=== PATIENT | female | born 1935 | race Caucasian/White ===

== ENCOUNTER 2021-01-26 22:40 | Emergency (ER) | payer OTHER, SELFPAY ==
[~2021-01-26] VITALS: Ht 157.5 cm; Wt 68.0 kg
[~2021-01-26 22:40] MED LIST: ASPI-1457 PO; DOCU-19 PO; LIP40 PO; NIAC500T2 PO; QUIN20TA PO
[2021-01-26 22:50] VITALS: BP_SYST 152
[2021-01-26] MEDS ORDERED: LORazepam 2 MG/ML VIAL IVP ONE (23:00)
[2021-01-26] MEDS ORDERED: DEXAMETHASONE SOD PHOSPHATE 10 MG/ML VIAL IVP ONE (23:00)
[2021-01-26] MEDS ORDERED: MAGNESIUM SULFATE 50 ML IV ONE (23:00)
[2021-01-26] MEDS ORDERED: FUROSEMIDE 40 MG/4 ML VIAL IVP ONE (23:00)
[2021-01-26 23:36] LABS: BASOPHILS # (AUTO) 0.1 K/uL (0.0-0.2); BASOPHILS % (AUTO) 0.7 % (0.0-2.0); EOSINOPHILS # (AUTO) 0.1 K/uL (0.0-0.4); HEMATOCRIT 38.7 % (36-48); HEMOGLOBIN 12.8 g/dL (12.0-16.0); LYMPHOCYTES # (AUTO) 2.7 K/uL (1.0-5.5); LYMPHOCYTES % (AUTO) 36.2 % (20.5-51.5); MEAN CORPUSCULAR HEMOGLOBIN 31 pg (27-31); MEAN CORPUSCULAR HGB CONC 33 % (32-36); MEAN CORPUSCULAR VOLUME 93 fL (79.0-98.0); MONOCYTES # (AUTO) 0.4 K/uL (0.0-1.0); MONOCYTES % (AUTO) 6.1 % (1.7-9.3); PLATELET COUNT (AUTO) 205 K/uL (130-430); RED BLOOD CELL COUNT(AUTO) 4.16 MIL/uL (4.2-6.2); RED CELL DISTRIBUTION WIDTH 13.1 % (9.0-15.0); WHITE BLOOD COUNT (AUTO) 7.3 K/uL (4.8-10.8)
[2021-01-26 23:52] LABS: GLUCOSE 90 mg/dL (70-99); UREA NITROGEN, BLOOD 13 mg/dL (8-21)
[2021-01-26] MEDS ORDERED: LORazepam 2 MG/ML VIAL ONE (23:56)
[2021-01-26] MEDS ORDERED: RASA0.5T PO (23:58)
[2021-01-26] MEDS ORDERED: LIP40 PO (23:58)
[2021-01-26 23:59] LABS: ANION GAP 14 (5-15); CHLORIDE 98 mmol/L (98-107); POTASSIUM 3.7 mmol/L (3.5-5.1); SODIUM SERUM 135 mmol/L (136-145)
[2021-01-26] MEDS ORDERED: QUIN5TAB20 PO (23:59)
[2021-01-27] MEDS ORDERED: MOB7.5 PO (00:01)
[2021-01-27] MEDS ORDERED: CARB1TAB21 PO (00:01)
[2021-01-27] MEDS ORDERED: FURO-149 PO (00:02)
[2021-01-27] MEDS ORDERED: THIA100T70 PO (00:03)
[2021-01-27] MEDS ORDERED: UMEC1BLS IH (00:03)
[2021-01-27] MEDS ORDERED: CYAN250L PO (00:04)
[2021-01-27] MEDS ORDERED: PYRI50CA PO (00:04)
[2021-01-27] MEDS ORDERED: VITA400T9 PO (00:07)
[2021-01-27] MEDS ORDERED: VITD400 PO (00:07)
[2021-01-27 02:15] VITALS: BP_SYST 141
== END 2021-01-27 02:17 | disposition home or self-care (01) ==
LOC: SED 22:40
DX: J96.01 Acute respiratory failure with hypoxia (principal); J44.1 Chronic obstructive pulmonary disease with (acute) exacerbation; F41.9 Anxiety disorder, unspecified; Z88.0 Allergy status to penicillin; Z88.8 Allergy status to other drugs, medicaments and biological substances; Z79.899 Other long term (current) drug therapy; Z20.822 Contact with and (suspected) exposure to COVID-19
CPT/HCPCS: 36415; 36600; 71045; 80048; 82803; 83880; 84484; 85025; 87426; 93005; 94660; 96365; 96375; 99291; J1100; J1940; J2060; J3475

== ENCOUNTER 2021-02-03 23:03 | Inpatient (IN) | payer OTHER, SELFPAY ==
[~2021-02-03] VITALS: Ht 157.5 cm; Wt 67.3 kg
[~2021-02-03 23:03] MED LIST changes: -ASPI-1457 PO; +CARB1TAB21 PO; +CYAN250L PO; -DOCU-19 PO; +FURO-149 PO; +MOB7.5 PO; -NIAC500T2 PO; +PYRI50CA PO; -QUIN20TA PO; +QUIN5TAB20 PO; +RASA0.5T PO; +THIA100T70 PO; +UMEC1BLS IH; +VITA400T9 PO; +VITD400 PO
[2021-02-03 23:05] VITALS: BP_SYST 115
--- NOTE | 2021-02-03 23:10 | NUR ---
PT BROUGHT IN BY [facility] AND PLACED IN BED #4, TRIAGED. REPORT GIVEN TO SHELBI
--- NOTE | 2021-02-03 23:40 | NUR ---
ER at bedside examining patient.
[2021-02-03] MEDS ORDERED: DIPHENHYDRAMINE INJ 50 MG/ML VIAL IVP ONE (23:45)
[2021-02-03] MEDS ORDERED: METOCLOPRAMIDE HCL 10 MG/2 ML VIAL IVP ONE (23:45)
[2021-02-03] MEDS ORDERED: KETOROLAC TROMETHAMINE 15 MG VIAL IVP ONE (23:45)
--- NOTE | 2021-02-03 23:46 | NUR ---
PT ARRIVED TO ER FOR COMPLAINTS OF HEADACHE AND PARKINSONS PAIN. PT STATES SHE IS HVAING A 9/10 PAIN TO HER HEAD. AND INCREASED PARKINSONS PAIN. STARTED AT 1900 TODAY. THIS IS HER FIRST EXPERINECE WITH THE PAIN. BUT SHE KNOWS THE PAIN AND IS THE SAME. A&OX4
--- NOTE | 2021-02-04 00:03 | NUR ---
# 20 gauge angiocath placed to L FOREARM. Use of asceptic technique. Opsite placed over site. Blood return noted. Flushed with 10 cc of normal saline. No evidence of infiltration noted. Patient tolerated well.
[2021-02-04] MEDS ORDERED: LORazepam 2 MG/ML VIAL IVP ONE (00:15)
[2021-02-04 00:28] LABS: BASOPHILS % (AUTO) 0.5 % (0.0-2.0); EOSINOPHILS # (AUTO) 0.1 K/uL (0.0-0.4); EOSINOPHILS % (AUTO) 1.3 % (0.0-4.0); HEMATOCRIT 35.7 % (36-48); HEMOGLOBIN 12.3 g/dL (12.0-16.0); LYMPHOCYTES # (AUTO) 1.6 K/uL (1.0-5.5); LYMPHOCYTES % (AUTO) 23.3 % (20.5-51.5); MEAN CORPUSCULAR HEMOGLOBIN 31 pg (27-31); MEAN CORPUSCULAR HGB CONC 35 % (32-36); MEAN CORPUSCULAR VOLUME 90 fL (79.0-98.0); MONOCYTES # (AUTO) 0.6 K/uL (0.0-1.0); NEUTROPHILS # (AUTO) 4.6 K/uL (1.8-7.7); NEUTROPHILS % (AUTO) 65.9 % (40.0-70.0); PLATELET COUNT (AUTO) 180 K/uL (130-430); RED BLOOD CELL COUNT(AUTO) 3.99 MIL/uL (4.2-6.2); RED CELL DISTRIBUTION WIDTH 12.8 % (9.0-15.0); WHITE BLOOD COUNT (AUTO) 6.9 K/uL (4.8-10.8)
[2021-02-04 00:41] LABS: ANION GAP 8 (5-15); CALCIUM 9.3 mg/dL (8.4-11.0); CHLORIDE 98 mmol/L (98-107); CREATININE 0.79 mg/dL (0.55-1.30); GLUCOSE 110 mg/dL (70-99); POTASSIUM 3.6 mmol/L (3.5-5.1); SODIUM SERUM 131 mmol/L (136-145); UREA NITROGEN, BLOOD 21 mg/dL (8-21)
[2021-02-04 00:47] LABS: ALANINE AMINOTRANSFERASE 11 U/L (12-78); ASPARTATE AMINOTRANSFERASE 11 U/L (10-37); LIPASE 249 U/L (73-393); TOTAL BILIRUBIN 0.6 mg/dL (0.0-1.0)
[2021-02-04] MEDS ORDERED: NACL 0.9% 1,000 ML IV ONE (01:15)
--- NOTE | 2021-02-04 01:30 | NUR ---
PT HAVING AN EPISODE OF CONFUSION AFTER THE BENADRYL. DR BASS AWARE
--- NOTE | 2021-02-04 02:10 | NUR ---
Patient transported to radiology via GURNEY, accompanied by MARIANNE.
[2021-02-04] MEDS ORDERED: ACETAMINOPHEN 325 MG TABLET PO ONE (02:30)
[2021-02-04] MEDS ORDERED: DIPHENHYDRAMINE INJ 50 MG/ML VIAL IVP ONE (02:30)
--- NOTE | 2021-02-04 04:48 | NUR ---
CALLED MICHAEL FOR BED PLACEMENT, MICHAEL WILL CALL BACK
--- NOTE | 2021-02-04 05:06 | NUR ---
RECEIVED BED ASSIGNMENT, TO TAKE PT IN 30 MINUTES
--- NOTE | 2021-02-04 06:30 | NUR ---
pt transferred to 120a via [place].
--- NOTE | 2021-02-04 06:33 | NUR ---
CONSULTATION PAGED REASON FOR CONSULTATION::ALTERED MENTAL STATUS WAS CONSULT CALLED?Y PERSON WHO WAS NOTIFIED:TEXT MESSAGED TOD GARCIA CONSULTING PHYSICIAN:TOD GARCIA NEWSPAPER COLUMNIST SPECIALTY:NEURO NEWSPAPER COLUMNIST PHONE NUMBER:[phone] REQUESTING PHYSICIAN:ZAC COLBY
[2021-02-04 06:37] VITALS: BP_SYST 154
[2021-02-04] MEDS ORDERED: FUROSEMIDE 40 MG TABLET PO SCH (06:45)
[2021-02-04] MEDS ORDERED: LORazepam 2 MG/ML VIAL IVP PRN (06:45)
[2021-02-04] MEDS ORDERED: ALBUTEROL SULFATE 0.083% 2.5 MG/3 ML VIAL.NEB INH PRN (06:45)
[2021-02-04] MEDS ORDERED: IPRATROPIUM BROM 0.5 MG/2.5 ML VIAL.NEB (ATROVENT) INH PRN (06:45)
[2021-02-04] MEDS ORDERED: ONDANSETRON HCL 4 MG/2 ML VIAL IVP PRN (06:45)
[2021-02-04 08:05] LABS: ANION GAP 5 (5-15); CALCIUM 7.7 mg/dL (8.4-11.0); CHLORIDE 105 mmol/L (98-107); CREATININE 0.97 mg/dL (0.55-1.30); GLUCOSE 93 mg/dL (70-99); PHOSPHORUS 3.3 mg/dL (2.7-4.5); POTASSIUM 3.9 mmol/L (3.5-5.1); SODIUM SERUM 137 mmol/L (136-145); UREA NITROGEN, BLOOD 17 mg/dL (8-21)
[2021-02-04 08:17] LABS: BASOPHILS % (AUTO) 0.5 % (0.0-2.0); EOSINOPHILS # (AUTO) 0.1 K/uL (0.0-0.4); EOSINOPHILS % (AUTO) 1.4 % (0.0-4.0); HEMATOCRIT 35.7 % (36-48); HEMOGLOBIN 12.1 g/dL (12.0-16.0); LYMPHOCYTES # (AUTO) 1.4 K/uL (1.0-5.5); LYMPHOCYTES % (AUTO) 20.4 % (20.5-51.5); MEAN CORPUSCULAR HEMOGLOBIN 31 pg (27-31); MEAN CORPUSCULAR HGB CONC 34 % (32-36); MEAN CORPUSCULAR VOLUME 91 fL (79.0-98.0); MONOCYTES # (AUTO) 0.5 K/uL (0.0-1.0); NEUTROPHILS # (AUTO) 4.9 K/uL (1.8-7.7); NEUTROPHILS % (AUTO) 70.7 % (40.0-70.0); PLATELET COUNT (AUTO) 166 K/uL (130-430); RED BLOOD CELL COUNT(AUTO) 3.95 MIL/uL (4.2-6.2); RED CELL DISTRIBUTION WIDTH 13.1 % (9.0-15.0); WHITE BLOOD COUNT (AUTO) 6.9 K/uL (4.8-10.8)
[2021-02-04] MEDS ORDERED: QUINAPRIL HCL PO SCH (09:00)
[2021-02-04] MEDS ORDERED: RASAGILINE MESYLATE PO SCH (09:00)
[2021-02-04] MEDS: ATORVASTATIN 20 MG TABLET PO SCH (09:56)
[2021-02-04] MEDS: CHOLECALCIFEROL (VITAMIN D-3) 400 UNIT TABLET PO SCH (09:56)
[2021-02-04] MEDS: THIAMINE HCL 100 MG TABLET PO SCH (09:56)
[2021-02-04] MEDS: PYRIDOXINE HCL 50 MG TABLET PO SCH (09:56)
[2021-02-04] MEDS: CYANOCOBALAMIN 1000 mCg TABLET PO SCH (09:57)
[2021-02-04] MEDS: CARBIDOPA/LEVODOPA 25/100 MG TABLET PO SCH (09:57)
[2021-02-04] MEDS: MELOXICAM 7.5 MG TABLET PO SCH (09:57)
[2021-02-04 11:40] VITALS: BP_SYST 129
[2021-02-04] MEDS ORDERED: NORMAL SALINE 5 ML DISP.SYRIN IVF SCH (14:00)
[2021-02-04 14:25] VITALS: BP_SYST 129
--- NOTE | 2021-02-04 15:15 | NUR ---
MD ROUNDS SEEN AND EXAMINED BY DR. LARA.
[2021-02-04] MEDS: NORMAL SALINE 5 ML DISP.SYRIN IVF SCH ×2 (15:27→22:09)
--- NOTE | 2021-02-04 19:30 | NUR ---
Received patient from Am shift nurse. Patient is A&Ox4 able to make needs known, denies chest pain or SOB. No s/s of distress noted. Chest rise is even and unlabored with CTA on RA. Normal heart sounds S1 & S2 present. Bowel sounds are active x4, no tenderness on palpation. Call light is within reach, bed is in the lowest position with bed rails up. Will continue to monitor throughout shift.
[2021-02-04 20:00] VITALS: BP_SYST 110
[2021-02-04] MEDS ORDERED: VITAMIN E 400 UNIT CAPSULE PO SCH (21:00)
--- NOTE | 2021-02-04 23:52 | NUR ---
Patient is in bed resting with no c/o. Will continue to monitor for changes in status.
[2021-02-05 00:19] VITALS: BP_SYST 120
[2021-02-05] MEDS: NORMAL SALINE 5 ML DISP.SYRIN IVF SCH ×2 (06:00→14:00)
--- NOTE | 2021-02-05 06:20 | NUR ---
Patient is sleeping with no c/o, Chest rise is even and unlabored no s/s of distress is noted. Call light is within reach, bed is in the lowest position with bed rails up for safety. Will differ further care to am shift nurse for continuity of care.
[2021-02-05 06:54] LABS: BASOPHILS % (AUTO) 0.4 % (0.0-2.0); EOSINOPHILS # (AUTO) 0.2 K/uL (0.0-0.4); EOSINOPHILS % (AUTO) 3.2 % (0.0-4.0); HEMATOCRIT 33.4 % (36-48); HEMOGLOBIN 11.3 g/dL (12.0-16.0); LYMPHOCYTES # (AUTO) 1.5 K/uL (1.0-5.5); LYMPHOCYTES % (AUTO) 30.4 % (20.5-51.5); MEAN CORPUSCULAR HEMOGLOBIN 31 pg (27-31); MEAN CORPUSCULAR HGB CONC 34 % (32-36); MEAN CORPUSCULAR VOLUME 91 fL (79.0-98.0); MONOCYTES # (AUTO) 0.4 K/uL (0.0-1.0); MONOCYTES % (AUTO) 7.4 % (1.7-9.3); NEUTROPHILS # (AUTO) 2.9 K/uL (1.8-7.7); NEUTROPHILS % (AUTO) 58.6 % (40.0-70.0); PLATELET COUNT (AUTO) 163 K/uL (130-430); RED BLOOD CELL COUNT(AUTO) 3.69 MIL/uL (4.2-6.2); RED CELL DISTRIBUTION WIDTH 12.9 % (9.0-15.0); WHITE BLOOD COUNT (AUTO) 4.9 K/uL (4.8-10.8)
[2021-02-05 07:07] LABS: ALANINE AMINOTRANSFERASE 13 U/L (12-78); ALBUMIN 3.1 g/dL (3.4-4.8); ANION GAP 4 (5-15); ASPARTATE AMINOTRANSFERASE 14 U/L (10-37); CALCIUM 8.4 mg/dL (8.4-11.0); CHLORIDE 107 mmol/L (98-107); CREATININE 0.86 mg/dL (0.55-1.30); GLUCOSE 89 mg/dL (70-99); POTASSIUM 4.2 mmol/L (3.5-5.1); SODIUM SERUM 138 mmol/L (136-145); TOTAL BILIRUBIN 0.2 mg/dL (0.0-1.0); UREA NITROGEN, BLOOD 18 mg/dL (8-21)
--- NOTE | 2021-02-05 07:45 | NUR ---
Opening Notes Patient is awake, alert and oriented x4. No resp distress noted. Breathing is even and unlabored. Pt remains on RA at this time. Pt denies any pain/chest pain at this time. IV site on left FA 22 gauge is leaking when flushed. Will attempt to reinsert IV access later in shift. Pt denies any NVD, cough or SOB. No c/o parkinsons symptoms at this time. Pt was educated on plan of care: safety, labs, PT evaluation. All needs met at this time. Safety and fall precautions in place. Bed in lowest position, locked. Will continue to monitor.
[2021-02-05 08:00] VITALS: BP_SYST 131
[2021-02-05] MEDS: CHOLECALCIFEROL (VITAMIN D-3) 400 UNIT TABLET PO SCH (08:32)
[2021-02-05] MEDS: MELOXICAM 7.5 MG TABLET PO SCH (08:32)
[2021-02-05] MEDS: THIAMINE HCL 100 MG TABLET PO SCH (08:32)
[2021-02-05] MEDS: CYANOCOBALAMIN 1000 mCg TABLET PO SCH (08:32)
[2021-02-05] MEDS: PYRIDOXINE HCL 50 MG TABLET PO SCH (08:33)
[2021-02-05] MEDS: CARBIDOPA/LEVODOPA 25/100 MG TABLET PO SCH (08:33)
[2021-02-05] MEDS: ATORVASTATIN 20 MG TABLET PO SCH (08:33)
[2021-02-05] MEDS ORDERED: lisinopriL 5 MG TABLET PO SCH (09:00)
--- NOTE | 2021-02-05 10:00 | NUR ---
Patient is being seen and examined by PHYSICAL THERAPY Pt is ambulatory with FWW, steady gait.
--- NOTE | 2021-02-05 10:32 | NUR ---
Nutrition Update : Tony Scale: 17 noted Pt admitted for Altered mental status. Diet: Cardiac BMI: 27.1 kg/m2 RD to follow per nutrition care standards.
[2021-02-05 12:00] VITALS: BP_SYST 106
--- NOTE | 2021-02-05 12:00 | NUR ---
Notes Patient is laying in bed and watching TV. No resp distress noted. Breathing is even and unlabored. Pt denies any pain at this time. Will continue to monitor.
--- NOTE | 2021-02-05 12:20 | NUR ---
Notes Patient is sleeping at this time. No resp distress noted. Breathing is even and unlabored. No signs of pain. Pt is anxious to go home. Pending consult with endocrinology.
[2021-02-05 13:04] VITALS: BP_SYST 140
--- NOTE | 2021-02-05 14:00 | NUR ---
Notes Patient is ambulating throughout hallways with FWW, steady gait. No resp distress noted. Breathing is even and unlabored. Pt denies any pain at this time. Possible pending discharge. Waiting for Dr. Morris to make rounds.
[2021-02-05 15:07] VITALS: BP_SYST 136
--- NOTE | 2021-02-05 16:00 | NUR ---
Notes Waiting for possible pending DC, waiting for MD Morris to make rounds. No resp distress noted. Breathing is even and unlabored. Pt denies any pain. Will continue to monitor.
[2021-02-05 16:05] VITALS: BP_SYST 136
--- NOTE | 2021-02-05 18:00 | NUR ---
Notes Patient is awake, alert and oriented x4. No resp distress noted. Breathing is even and unlabored. Denies any pain. Significant other by bedside. Pending discharge.
--- NOTE | 2021-02-05 18:32 | NUR ---
D/C Patient Patient given medication reconciliation form and D/C instructions. Exit Care provided. Patient verbalized understanding. MD discussed with patient the results and treatment provided. Ambulatory with steady gait for discharge to home. Patient in stable condition, ID band removed. IV catheter removed, intact and dressing applied, no active bleeding. Rx of given. Patient educated on pain management. All belongings sent with patient.
== END 2021-02-05 18:32 | disposition home or self-care (01) | DRG 57 ==
LOC: SED 23:03 → SMU 02-04 04:00
PROVIDERS: ADMIT Preventive Medicine Preventive Medicine/Occupational Environmental Medicine; ATTEND Preventive Medicine Preventive Medicine/Occupational Environmental Medicine
DX: G20 Parkinson's disease (principal); E87.1 Hypo-osmolality and hyponatremia; E44.0 Moderate protein-calorie malnutrition; R41.82 Altered mental status, unspecified; I25.10 Atherosclerotic heart disease of native coronary artery without angina pectoris; E78.5 Hyperlipidemia, unspecified; J44.9 Chronic obstructive pulmonary disease, unspecified; I10 Essential (primary) hypertension; F41.9 Anxiety disorder, unspecified; R73.9 Hyperglycemia, unspecified; D64.9 Anemia, unspecified; Z20.822 Contact with and (suspected) exposure to COVID-19; Z88.0 Allergy status to penicillin; Z88.8 Allergy status to other drugs, medicaments and biological substances; Z79.899 Other long term (current) drug therapy; Z79.84 Long term (current) use of oral hypoglycemic drugs; Z68.27 Body mass index [BMI] 27.0-27.9, adult
CPT/HCPCS: 36415; 70450-TC; 76376; 80048; 80053; 83690; 83735; 84100; 85025; 93005; 96361; 96374; 96375; 96376; 99285; J1200; J1885; J2060; J2765

== ENCOUNTER 2021-09-05 17:08 | Inpatient (IN) | payer OTHER ==
[~2021-09-05] VITALS: Ht 154.9 cm; Wt 59.4 kg
--- NOTE | 2021-09-05 17:11 | NUR ---
Placed in room 01 . Placed on inhalation therapy aide, blood pressure machine and pulse oximeter. To gown for exam. Side rails up.
[2021-09-05 17:12] VITALS: BP_SYST 137
[2021-09-05] MEDS ORDERED: MORPHINE 4 MG INJ. 4 MG/ML VIAL IVP ONE ×2 (17:15→18:45)
[2021-09-05] MEDS ORDERED: ONDANSETRON HCL 4 MG/2 ML VIAL IVP ONE ×2 (17:15→18:45)
--- NOTE | 2021-09-05 17:15 | NUR ---
Patient is an 86-year-old female with history of Parkinson's, hypertension, high cholesterol, brought in by paramedics from home for evaluation of severe, 10/10 epigastric pain radiating into her chest over her substernal area since 4 PM today. Patient denies eating anything prior to symptom onset. Reports mild SOB. Reports nausea and vomitting. Vomit bag provided. In the field, patient appeared diaphoretic and was given fluids, 324 aspirin PO, nitro x2 sublingual which brought her pain down from a 10/10 to a 2/10. Blood pressure in the field noted to be 137/82. Twelve-lead EKG performed which was normal. Dr Paul informed to see pt.
[2021-09-05 18:03] LABS: BASOPHILS % (AUTO) 0.4 % (0.0-2.0); EOSINOPHILS # (AUTO) 0.1 K/uL (0.0-0.4); EOSINOPHILS % (AUTO) 1.6 % (0.0-4.0); HEMATOCRIT 33.5 % (36-48); HEMOGLOBIN 11.4 g/dL (12.0-16.0); LYMPHOCYTES # (AUTO) 1.6 K/uL (1.0-5.5); LYMPHOCYTES % (AUTO) 30.4 % (20.5-51.5); MEAN CORPUSCULAR HEMOGLOBIN 31 pg (27-31); MEAN CORPUSCULAR HGB CONC 34 % (32-36); MEAN CORPUSCULAR VOLUME 91 fL (79.0-98.0); MONOCYTES # (AUTO) 0.4 K/uL (0.0-1.0); MONOCYTES % (AUTO) 8.4 % (1.7-9.3); NEUTROPHILS # (AUTO) 3.1 K/uL (1.8-7.7); NEUTROPHILS % (AUTO) 59.2 % (40.0-70.0); PLATELET COUNT (AUTO) 190 K/uL (130-430); RED BLOOD CELL COUNT(AUTO) 3.68 MIL/uL (4.2-6.2); RED CELL DISTRIBUTION WIDTH 13.6 % (9.0-15.0); WHITE BLOOD COUNT (AUTO) 5.3 K/uL (4.8-10.8)
--- NOTE | 2021-09-05 18:06 | NUR ---
Pt with eyes closed, in NAD at bedside.
[2021-09-05 18:12] LABS: ANION GAP 6 (5-15); CALCIUM 8.2 mg/dL (8.4-11.0); CHLORIDE 102 mmol/L (98-107); CREATININE 1.11 mg/dL (0.55-1.30); GLUCOSE 93 mg/dL (70-99); POTASSIUM 4.2 mmol/L (3.5-5.1); SODIUM SERUM 134 mmol/L (136-145); UREA NITROGEN, BLOOD 21 mg/dL (8-21)
[2021-09-05 18:25] LABS: ALANINE AMINOTRANSFERASE 8 U/L (12-78); ALBUMIN 3.5 g/dL (3.4-4.8); ASPARTATE AMINOTRANSFERASE 16 U/L (10-37); TOTAL BILIRUBIN 0.4 mg/dL (0.0-1.0)
--- NOTE | 2021-09-05 19:06 | NUR ---
PT CONTINUES TO REPORT LEFT UPPER ABDOMINAL PAIN WITH NAUSEA, MEDICATED ORDERED.
[2021-09-05] MEDS ORDERED: FAMOTIDINE PF 20 MG/2 ML VIAL IVP ONE (19:15)
[2021-09-05] MEDS ORDERED: MAG-AL HYDROX/SIMETH 30 ML UDC PO ONE ×2 (19:15→22:00)
--- NOTE | 2021-09-05 19:20 | NUR ---
Pt nauseated and refused PO RX Mylanta for epigastric relief. Pepcid given IV. Geremias well.
--- NOTE | 2021-09-05 19:22 | NUR ---
REPORT GIVEN TO COLE BLANCO TO ASSUME CARE
--- NOTE | 2021-09-05 20:28 | NUR ---
Emily mccarthy in ED - 09/05/21 at 2028 by [email or web address] PATIENT REFUSED MIRALAX PO. DR. BRANDY GARCIA.
--- NOTE | 2021-09-05 20:29 | NUR ---
PATIENT REFUSED MADEIDREX PO, DR. NAVA AWARE.
--- NOTE | 2021-09-05 20:50 | NUR ---
Pt and partner updated on plan of care and informed of waiting for bed for admission at this time. Pt and partner verbalize understanding of update.
[2021-09-05] MEDS ORDERED: ONDANSETRON HCL 4 MG/2 ML VIAL IVP PRN (21:00)
[2021-09-05] MEDS ORDERED: MORPHINE 2 MG/ML INJ. SYRINGE IVP PRN ×2 (21:00)
[2021-09-05] MEDS: PANTOPRAZOLE SODIUM 40 MG/VIAL (PROTONIX) IVP SCH (21:00)
--- NOTE | 2021-09-05 21:01 | NUR ---
Oniel swab walked to lab at this time
--- NOTE | 2021-09-06 00:46 | NUR ---
Report given to Andre BLANCO
--- NOTE | 2021-09-06 01:00 | NUR ---
Admission Note Received patient from ER with diagnosis of acute gastritis. Initial Plan of Care discussed-patient verbalized understanding. Oriented to room, call light, pain management and safety.
[2021-09-06 01:07] VITALS: BP_SYST 153
[2021-09-06] MEDS: D5/0.45 NS 1,000 ML IV SCH ×2 (01:43→21:22)
--- NOTE | 2021-09-06 03:55 | NUR ---
CONSULTATION PAGED REASON FOR CONSULTATION: Acute Gastritis WAS CONSULT CALLED? Y PERSON WHO WAS NOTIFIED: Dona CONSULTING PHYSICIAN: Dr. Carreon (Dr. Grace is chronic care nurse) REQUESTING PHYSICIAN: Dr. Vera
[2021-09-06 06:37] LABS: BASOPHILS % (AUTO) 0.3 % (0.0-2.0); EOSINOPHILS % (AUTO) 1.3 % (0.0-4.0); HEMATOCRIT 35.2 % (36-48); HEMOGLOBIN 11.9 g/dL (12.0-16.0); LYMPHOCYTES # (AUTO) 0.7 K/uL (1.0-5.5); LYMPHOCYTES % (AUTO) 19.1 % (20.5-51.5); MEAN CORPUSCULAR HEMOGLOBIN 31 pg (27-31); MEAN CORPUSCULAR HGB CONC 34 % (32-36); MEAN CORPUSCULAR VOLUME 91 fL (79.0-98.0); MONOCYTES # (AUTO) 0.3 K/uL (0.0-1.0); MONOCYTES % (AUTO) 6.8 % (1.7-9.3); NEUTROPHILS # (AUTO) 2.8 K/uL (1.8-7.7); NEUTROPHILS % (AUTO) 72.5 % (40.0-70.0); PLATELET COUNT (AUTO) 153 K/uL (130-430); RED BLOOD CELL COUNT(AUTO) 3.86 MIL/uL (4.2-6.2); RED CELL DISTRIBUTION WIDTH 13.4 % (9.0-15.0); WHITE BLOOD COUNT (AUTO) 3.8 K/uL (4.8-10.8)
--- NOTE | 2021-09-06 06:38 | NUR ---
CLOSING NOTE PATIENT IN BED, SLEEPING COMFORTABLY. NO S/S OF ACUTE DISTRESS NOTED. BREATHING EVEN AND UNLABORED, NASAL CANULA ATTACHED PROPERLY, ON 2L OF OXYGEN. IVF INFUSING WELL, IV SITE IS PATENT, NO SIGNS OF INFILTRATION OR INFECTION NOTED. ALL NEEDS MET THROUGHOUT SHIFT. FALL AND SAFETY PRECAUTIONS MAINTAINED THROUGHOUT SHIFT. WILL CONTINUE TO MONITOR UNTIL PATIENT CARE IS ENDORSED TO ONCOMING DAYSHIFT NURSE.
[2021-09-06 06:54] LABS: ALBUMIN 3.3 g/dL (3.4-4.8); ANION GAP 4 (5-15); CALCIUM 7.7 mg/dL (8.4-11.0); CHLORIDE 103 mmol/L (98-107); CREATININE 0.98 mg/dL (0.55-1.30); GLUCOSE 97 mg/dL (70-99); POTASSIUM 5.3 mmol/L (3.5-5.1); SODIUM SERUM 138 mmol/L (136-145); TOTAL BILIRUBIN 0.5 mg/dL (0.0-1.0); UREA NITROGEN, BLOOD 18 mg/dL (8-21)
[2021-09-06 07:53] LABS: ALANINE AMINOTRANSFERASE 340 U/L (12-78); ASPARTATE AMINOTRANSFERASE 792 U/L (10-37)
[2021-09-06 08:00] VITALS: BP_SYST 135
--- NOTE | 2021-09-06 08:41 | NUR ---
OPENING NOTE Patient resting in bed, AxO x4. Patient denies pain at this time, no sign of distress. IV is clean, dry, intact, and running prescribed fluids. Patient able to ambulate to the restroom with minimal assist. Patient denies chest pain, but states that her stomach is tender. All needs met at this time and safety checks made.
[2021-09-06] MEDS: CARBIDOPA/LEVODOPA 10/100 MG TABLET PO SCH ×4 (09:00→21:00)
[2021-09-06] MEDS: PANTOPRAZOLE SODIUM 40 MG/VIAL (PROTONIX) IVP SCH (09:43)
--- NOTE | 2021-09-06 12:08 | NUR ---
I AGREE WITH BULB FILLER ASSESSMENT AND HAVE SIGNED OFF ON ALL DOCUMENTATION. PAUL RN
[2021-09-06] MEDS ORDERED: PANTOPRAZOLE SODIUM 40 MG/VIAL (PROTONIX) IVP SCH (14:45)
[2021-09-06 16:00] VITALS: BP_SYST 143
[2021-09-06 19:40] VITALS: BP_SYST 111
--- NOTE | 2021-09-06 19:40 | NUR ---
Opening notes Pt alert, awake, no s/s distress noted. VSS. No c/o pain. IVF infusing at ordered rate L. AC 20G clear and patent. Pt maintained NPO. Awaiting USD and MRCP. CAll light within reach. Bed low, locked, siderails up x2. To monitor.
[2021-09-07] VITALS: BP_SYST 120
--- NOTE | 2021-09-07 06:05 | NUR ---
Closing notes Pt asleep, easily awakens. No s/s distress noted. IVF infusing at ordered rate L. AC 20 clear and patent. Call light within reach. Bed low, locked, siderails up x2. To endorse to AM nurse.
[2021-09-07 07:19] LABS: ALANINE AMINOTRANSFERASE 360 U/L (12-78); ANION GAP 5 (5-15); ASPARTATE AMINOTRANSFERASE 182 U/L (10-37); CALCIUM 7.6 mg/dL (8.4-11.0); CHLORIDE 105 mmol/L (98-107); CREATININE 0.86 mg/dL (0.55-1.30); GLUCOSE 90 mg/dL (70-99); LIPASE 105 U/L (73-393); POTASSIUM 4.1 mmol/L (3.5-5.1); SODIUM SERUM 140 mmol/L (136-145); TOTAL BILIRUBIN 0.4 mg/dL (0.0-1.0); UREA NITROGEN, BLOOD 12 mg/dL (8-21)
[2021-09-07 08:00] VITALS: BP_SYST 146
[2021-09-07 08:52] LABS: BASOPHILS % (AUTO) 0.3 % (0.0-2.0); EOSINOPHILS # (AUTO) 0.1 K/uL (0.0-0.4); EOSINOPHILS % (AUTO) 2.5 % (0.0-4.0); HEMATOCRIT 34.2 % (36-48); HEMOGLOBIN 11.5 g/dL (12.0-16.0); LYMPHOCYTES % (AUTO) 18.2 % (20.5-51.5); MEAN CORPUSCULAR HEMOGLOBIN 31 pg (27-31); MEAN CORPUSCULAR HGB CONC 34 % (32-36); MEAN CORPUSCULAR VOLUME 92 fL (79.0-98.0); MONOCYTES # (AUTO) 0.4 K/uL (0.0-1.0); MONOCYTES % (AUTO) 7.1 % (1.7-9.3); NEUTROPHILS # (AUTO) 3.9 K/uL (1.8-7.7); NEUTROPHILS % (AUTO) 71.9 % (40.0-70.0); PLATELET COUNT (AUTO) 138 K/uL (130-430); RED BLOOD CELL COUNT(AUTO) 3.72 MIL/uL (4.2-6.2); RED CELL DISTRIBUTION WIDTH 13.4 % (9.0-15.0); WHITE BLOOD COUNT (AUTO) 5.5 K/uL (4.8-10.8)
[2021-09-07] MEDS: PANTOPRAZOLE SODIUM 40 MG/VIAL (PROTONIX) IVP SCH (09:00)
--- NOTE | 2021-09-07 09:07 | NUR ---
OPENING NOTE Patient in bed resting, no sign of distress and denies pain. Patient has a nasal cannula in place on 2L, oxygen saturation 98%. Patient states that she feels anxious about not knowing whats going on and when tests will be done. Updated the patient on her plan of care and provided comfort measures. All needs met at this time and safety checks made.
[2021-09-07] MEDS: CARBIDOPA/LEVODOPA 10/100 MG TABLET PO SCH ×4 (09:25→21:00)
[2021-09-07 12:00] VITALS: BP_SYST 127
[2021-09-07 16:00] VITALS: BP_SYST 126
[2021-09-07] MEDS: D5/0.45 NS 1,000 ML IV SCH (18:37)
[2021-09-07 20:25] VITALS: BP_SYST 128
--- NOTE | 2021-09-07 20:25 | NUR ---
Opening notes Pt AAOx4, VSS, afebrile. No c/o pain at this time. IVF infusing at ordered rate L.AC 18 no s/s infiltration. Call light within reach. Bed low, locked, siderails up x2. To monitor.
[2021-09-08 00:19] VITALS: BP_SYST 130
--- NOTE | 2021-09-08 05:25 | NUR ---
Closing notes Pt asleep, no s/s distress noted. IVF infusing at ordered rate L. AC. Pt ambulates to bathroom. Maintained NPO for USD abdomen and MRCP today. Call light within reach. Bed low, locked, siderails up. To endorse to AM nurse.
[2021-09-08 07:19] LABS: BASOPHILS % (AUTO) 0.5 % (0.0-2.0); EOSINOPHILS # (AUTO) 0.2 K/uL (0.0-0.4); EOSINOPHILS % (AUTO) 3.7 % (0.0-4.0); HEMATOCRIT 33.5 % (36-48); HEMOGLOBIN 11.4 g/dL (12.0-16.0); LYMPHOCYTES # (AUTO) 1.1 K/uL (1.0-5.5); LYMPHOCYTES % (AUTO) 19.6 % (20.5-51.5); MEAN CORPUSCULAR HEMOGLOBIN 31 pg (27-31); MEAN CORPUSCULAR HGB CONC 34 % (32-36); MEAN CORPUSCULAR VOLUME 91 fL (79.0-98.0); MONOCYTES # (AUTO) 0.4 K/uL (0.0-1.0); MONOCYTES % (AUTO) 7.6 % (1.7-9.3); NEUTROPHILS % (AUTO) 68.6 % (40.0-70.0); PLATELET COUNT (AUTO) 150 K/uL (130-430); RED BLOOD CELL COUNT(AUTO) 3.69 MIL/uL (4.2-6.2); RED CELL DISTRIBUTION WIDTH 13.3 % (9.0-15.0); WHITE BLOOD COUNT (AUTO) 5.8 K/uL (4.8-10.8)
[2021-09-08 08:19] LABS: ALANINE AMINOTRANSFERASE 223 U/L (12-78); ALBUMIN 2.9 g/dL (3.4-4.8); ANION GAP 6 (5-15); CALCIUM 7.6 mg/dL (8.4-11.0); CHLORIDE 106 mmol/L (98-107); GLUCOSE 95 mg/dL (70-99); LIPASE 125 U/L (73-393); POTASSIUM 4.6 mmol/L (3.5-5.1); SODIUM SERUM 139 mmol/L (136-145); TOTAL BILIRUBIN 0.3 mg/dL (0.0-1.0); UREA NITROGEN, BLOOD 9 mg/dL (8-21)
[2021-09-08] MEDS: PANTOPRAZOLE SODIUM 40 MG/VIAL (PROTONIX) IVP SCH (08:36)
[2021-09-08] MEDS: CARBIDOPA/LEVODOPA 10/100 MG TABLET PO SCH ×4 (08:36→20:49)
[2021-09-08] MEDS: D5/0.45 NS 1,000 ML IV SCH (08:37)
[2021-09-08 09:43] LABS: ASPARTATE AMINOTRANSFERASE 59 U/L (10-37)
[2021-09-08 11:29] VITALS: BP_SYST 129
[2021-09-08] MEDS: MILK OF MAGNESIA 30 ML UDC PO PRN (16:42)
--- NOTE | 2021-09-08 19:30 | NUR ---
OPENING NOTES: Patient received from AM shift. Patient is AA&Ox4 able to make needs known, denies any pain or discomfort at this time. Chest rise is even and unlabored on RA. Normal heart sounds present on med-surg monitoring. Hypo active BS x4, patient reports pain with palpation. Safety measures are in place, patient has call light within reach. Will resume care and continue to monitor throughout the shift.
[2021-09-08 20:00] VITALS: BP_SYST 143
[2021-09-09] VITALS: BP_SYST 152
--- NOTE | 2021-09-09 02:15 | NUR ---
Patient was disgruntled asking for prescribed parkinson's medication that she thought would be due at 0100. Schedule for Sinemet was provided and nurse explained that scheduled times are 0900, 1300, 1700 and 2100. Patient states the MD wanted to have the medications at least 4 hours apart. Education was provided on medication regimen and patient verbalized understanding.
--- NOTE | 2021-09-09 03:24 | NUR ---
PATIENT RESTING: Patient resting quietly. No acute distress noted. Vital signs within normal range.
[2021-09-09] MEDS: D5/0.45 NS 1,000 ML IV SCH ×2 (05:00→14:33)
[2021-09-09 08:00] VITALS: BP_SYST 131
--- NOTE | 2021-09-09 08:00 | NUR ---
OPENING NOTE Patient in bed resting, AxO x4. No sign of distress, patient complaining of a headache. MD paged for prn orders. Patient states that her stomach is tender and she has been constipated. Patient updated on her plan of care for the day. All needs met at this time and safety checks made.
[2021-09-09] MEDS: PANTOPRAZOLE SODIUM 40 MG/VIAL (PROTONIX) IVP SCH (08:53)
[2021-09-09] MEDS: CARBIDOPA/LEVODOPA 10/100 MG TABLET PO SCH ×4 (09:02→20:15)
[2021-09-09 12:00] VITALS: BP_SYST 148
[2021-09-09] MEDS: ACETAMINOPHEN 325 MG TABLET PO PRN ×2 (12:09→18:26)
--- NOTE | 2021-09-09 15:08 | NUR ---
TAP WATER ENEMA Patient received enema, tolerated well. She was able to have a bowel movement. She states that her stomach is still upset but she does feel some relief.
[2021-09-09 16:00] VITALS: BP_SYST 135
--- NOTE | 2021-09-09 18:10 | NUR ---
CLOSING NOTE Patient in bed resting with eyes closed. No sign of distress or pain at this time. IV is clean, dry, intact, and running prescribed fluids. Patient tolerated enema well and was able to have a large bowel movement, stated she feels less bloated but is still experiencing stomach pain. Patient has tolerated her clear liquid diet well. All needs met at this time and safety checks made. Will endorse to shift commander nurse.
[2021-09-09 20:00] VITALS: BP_SYST 138
[2021-09-09] MEDS: MILK OF MAGNESIA 30 ML UDC PO PRN (20:15)
--- NOTE | 2021-09-09 20:30 | NUR ---
Ambulate with steady gait ,passing gas as verbalized had good bowel movement after enema given by morning still with mild abdominal discomfort,discussed plan of care medication indication side effect verbalized understanding.
--- NOTE | 2021-09-10 | NUR ---
PATIENT RESTING: Patient resting quietly. No acute distress noted. Vital signs within normal range.
[2021-09-10 00:02] VITALS: BP_SYST 117
--- NOTE | 2021-09-10 06:10 | NUR ---
Ambulate to bathroom with steady gait passing gas as verbalized,abdominal discomfort on/off tolerable as verbalized.,on IV hydration.
[2021-09-10 08:00] VITALS: BP_SYST 155
--- NOTE | 2021-09-10 08:00 | NUR ---
OPENING NOTE Patient in bed resting, AxO x4. No sign of distress, patient complaining of a headache 05/29. IV site is clean, dry, intact, and running prescribed fluids. Patient states she has not had a bowel movement since her enema yesterday afternoon. 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 Patient tolerating clear liquid diet well. All needs met at this time and safety checks made.
[2021-09-10 09:07] LABS: ALBUMIN 3.5 g/dL (3.4-4.8); BILIRUBIN,DIRECT 0.2 mg/dL (0.0-0.3); TOTAL BILIRUBIN 0.5 mg/dL (0.0-1.0)
[2021-09-10] MEDS: PANTOPRAZOLE SODIUM 40 MG/VIAL (PROTONIX) IVP SCH (09:13)
[2021-09-10] MEDS: CARBIDOPA/LEVODOPA 10/100 MG TABLET PO SCH ×4 (09:29→21:38)
[2021-09-10] MEDS: ACETAMINOPHEN 325 MG TABLET PO PRN (09:29)
[2021-09-10] MEDS: D5/0.45 NS 1,000 ML IV SCH (09:34)
[2021-09-10 12:00] VITALS: BP_SYST 144
--- NOTE | 2021-09-10 12:58 | NUR ---
ROUNDS Patient in bed resting, no sign of distress and denies pain. Patient states that her upper abdomen is tender. IV is patent and running prescribed fluids. Patient is anxious to go home and is frustrated that no doctors have been in to see her today. All needs met at this time, and safety checks made.
--- NOTE | 2021-09-10 15:52 | NUR ---
CONSULTATION PAGED/CALLED Reason for Consultation: [] CHEST PAIN Person Who was Notified: [] FRANKY Consulting Physician: [] DR TREJO Shell Coremaker Specialty: [] CARDIO Ordering Physician: [] DR SAMUELS
--- NOTE | 2021-09-10 19:30 | NUR ---
PM OPENING NOTES HANDOFF REPORT RECEIVED FROM ANGEL GARCIA. PT RECEIVED A/OX4 SITTING UP IN BED REQUESTING HER "PARKINSON MED BE GIVEN A LITTLE BIT AFTER 2100" TO STAY ON SCHEDULE SINCE SHE RECEIVED IT A BIT LATER THIS A.M. REPORT IV FLUIDS D/C'D. TOLERATED SOFT DIET VERY WELL AFTER BEING NPO. REPORTED DR. MCCABE NOTIFIED TO PT HEADACHES IN TOP OF HER HEAD AND ARVIND DESIRE HIM TO CHECK THIS OUT WITH PT BEFORE DISCHARGE POSSIBLY TOMORROW. DENIES PAIN OR HEADACHE AT THE PRESENT MOMENT. MONITOR AND ASSIST NEEDED.
[2021-09-10 20:00] VITALS: BP_SYST 150
--- NOTE | 2021-09-10 21:30 | NUR ---
ROUTINE MEDS GIVEN REQUESTED.
--- NOTE | 2021-09-11 | NUR ---
WARM BLANKETS GIVEN OUT OF THE OVEN AND TUCKED IN. RESTING. DENIES PAIN. CONT TO MONITOR.
[2021-09-11 01:11] VITALS: BP_SYST 152
--- NOTE | 2021-09-11 06:00 | NUR ---
PT STATED "I THINK A MOSQUITO CLIMBED INTO BED WITH ME. MY BACK REALLY ITCHES". PICTURES TAKEN OF MANY SMALL PINK BUMPS ON BACK. PERSONAL CLOTHING BAGGED. NEW GOWN GIVEN. BED STRIPPED. MOVED PT TO ROOM 124A.
--- NOTE | 2021-09-11 07:30 | NUR ---
PM CLOSING NOTES REPORTED TO KELLIE BLANCO PT MOVED FROM 129A TO 124A BECAUSE PINK BUMPS APPEARED ON PT BACK OVER NIGHT. PT AWAKE IN BED. DENIES PAIN. DOES ITCH. RELINQUISHED CARE OF PT AT THIS TIME.
[2021-09-11 08:00] VITALS: BP_SYST 155
[2021-09-11] MEDS: PANTOPRAZOLE SODIUM 40 MG/VIAL (PROTONIX) IVP SCH (08:54)
[2021-09-11] MEDS ORDERED: HYDROCORTISONE 1%, 28.35 GM TOPICAL CREAM TP SCH (09:00)
[2021-09-11] MEDS: CARBIDOPA/LEVODOPA 10/100 MG TABLET PO SCH ×2 (09:05→12:47)
[2021-09-11] MEDS: ACETAMINOPHEN 325 MG TABLET PO PRN (09:06)
--- NOTE | 2021-09-11 11:34 | NUR ---
Discharge Planning: DCP faxed pt referral to [facility] P#[phone] DCP to follow up Addendum: 09/11/21 at 1205 by Carla Childers DP [facility] P#[phone] decline pt no staffing. DCP faxed pt referral to [facility]#[phone] P#[phone] Pamela Pierce. DCP to follow up Addendum: 09/11/21 at 1207 by Carla Childers DP Stan [phone] Addendum: 09/11/21 at 1259 by Carla Childers DP Danny Gifford#[phone] P#[phone] pt accepted
[2021-09-11 12:00] VITALS: BP_SYST 145
[2021-09-11 14:17] VITALS: BP_SYST 145
--- NOTE | 2021-09-11 14:30 | NUR ---
TOLD PATIENT THAT I NEED TO DO SKIN SCRAPPING ON HER BACK BUT PATIENT REFUSED AND TOLD ME THAT IT IS NOT ITCHY ANYMORE AND THE HYDRO CORTISONE CREAM HELP A LOT IN RELIEVING THE ITCHINESS.
== END 2021-09-11 16:10 | disposition home health service (06) | DRG 392 ==
LOC: SED 17:08 → SMU 20:52
PROVIDERS: ADMIT Internal Medicine; ATTEND Internal Medicine
DX: K57.90 Diverticulosis of intestine, part unspecified, without perforation or abscess without bleeding (principal); R65.10 Systemic inflammatory response syndrome (SIRS) of non-infectious origin without acute organ dysfunction; G20 Parkinson's disease; I10 Essential (primary) hypertension; E78.00 Pure hypercholesterolemia, unspecified; E78.5 Hyperlipidemia, unspecified; K21.9 Gastro-esophageal reflux disease without esophagitis; K27.9 Peptic ulcer, site unspecified, unspecified as acute or chronic, without hemorrhage or perforation; Z20.822 Contact with and (suspected) exposure to COVID-19; Z90.49 Acquired absence of other specified parts of digestive tract; Z80.8 Family history of malignant neoplasm of other organs or systems; Z80.0 Family history of malignant neoplasm of digestive organs; Z88.0 Allergy status to penicillin; Z88.8 Allergy status to other drugs, medicaments and biological substances; Z79.899 Other long term (current) drug therapy
CPT/HCPCS: 36415; 71045; 74181; 76376; 76700-TC; 80048; 80053; 80076; 83605; 83690; 84484; 85025; 87040; 93005; 96374; 96375; 96376; 99285; C9113; J2270; J2405; J3490